=== PATIENT | female | born 1975 | race Two or more races ===

== ENCOUNTER 2022-11-18 09:52 | Inpatient (IN) | payer MEDICAID, OTHER ==
[~2022-11-18] VITALS: Ht 160 cm; Wt 82.0 kg
[2022-11-18 10:33] LABS: Urine Bacteria NONE SEEN /hpf (None Seen); Urine Blood Negative /uL (Negative); Urine Clarity HAZY (Clear); Urine Color Yellow (Yellow); Urine Hyaline Cast MOD /lpf (0 - 2); Urine Mucus FEW (None Seen); Urine Protein, UAD 1+ (Negative); Urine Specific Gravity 1.027 (1.001-1.035); Urine WBC 10 /hpf (0 - 5)
[2022-11-18 10:45] LABS: Alanine Aminotransferase 28 U/L (7-40); Albumin 4.3 g/dL (3.2-4.8); Alkaline Phosphatase 114 U/L (46-116); Anion Gap 7 (5-15); Aspartate Aminotransferase 14 U/L (13-40); BUN/Creatinine Ratio 12.4 (10.0-20.0); Blood Urea Nitrogen 12 mg/dL (9-23); Calcium 9.2 mg/dL (8.5-10.1); Carbon Dioxide 27 mmol/L (20-30); Chloride 105 mmol/L (98-107); Glucose 101 mg/dL (74-106); Potassium 4.1 mmol/L (3.5-5.1); Sodium 139 mmol/L (136-145)
[2022-11-18] MEDS ORDERED: SODIUM CHLORIDE 0.9% 1,000 ML IVB ONE (10:45)
[2022-11-18] MEDS ORDERED: PANTOPRAZOLE 40 MG/10 ML VIAL INJ IV ONE (10:45)
[2022-11-18] MEDS ORDERED: MORPHINE SULFATE 4 MG/ML SYR/VIAL IV ONE (10:45)
[2022-11-18] MEDS ORDERED: ONDANSETRON HCL 4 MG/2 ML VIAL IV ONE (10:45)
[2022-11-18 10:46] LABS: Basophils # (auto) 0 10 ^3/uL (0-0.2); Basophils % (auto) 0.3 % (0.0-2.0); Bilirubin, Total 0.5 mg/dL (0.2-1.0); Eosinophils # (auto) 0.1 10 ^3/uL (0-0.8); Eosinophils % (auto) 1.2 % (0.0-7.0); Hematocrit 42.5 % (36.0-46.0); Hemoglobin 14.6 g/dL (12.2-16.2); Lymphocytes % (auto) 19.2 % (10.0-50.0); Mean Corpuscular Hemoglobin 29.3 pg (28.0-32.0); Mean Corpuscular Hgb Conc. 34.3 g/dL (32.0-36.0); Mean Corpuscular Volume 85.5 fL (80.0-100.0); Monocytes # (auto) 0.6 10 ^3/uL (0-1.3); Monocytes % (auto) 5.4 % (0.0-12.0); Neutrophils # (auto) 7.8 10 ^3/uL (1.6-8.6); Neutrophils % (auto) 73.9 % (37.0-80.0); Nucleated Red Blood Cells % 0.1 %; Red Blood Cells 4.97 10^6/uL (4.0-5.20); Red Cell Distribution Width 13.2 % (11.8-14.3); Total Protein 7.6 g/dL (5.7-8.2); White Blood Cell 10.6 10^3/uL (4.4-10.8)
[2022-11-18 11:16] LABS: Magnesium 1.8 mg/dL (1.6-2.6)
[2022-11-18] MEDS ORDERED: cefTRIAXone 1GM/50ML D5W 50 ML IV ONE (11:45)
[2022-11-18 13:17] VITALS: PULSE 64; RESP 18; O2SAT 97
[2022-11-18] MEDS ORDERED: DOCUSATE SOD 100 MG CAP PO PRN (13:45)
[2022-11-18] MEDS ORDERED: HYDROcodone-ACET 5/325MG TAB PO PRN (13:45)
[2022-11-18] MEDS: SODIUM CHLORIDE 0.9% 1,000 ML IV SCH ×2 (14:54→20:46)
[2022-11-18] MEDS: ACETAMINOPHEN 325 MG TAB PO PRN (15:54)
[2022-11-18 19:30] VITALS: PULSE 54; RESP 18; O2SAT 92
[2022-11-18] MEDS: ONDANSETRON HCL 4 MG/2 ML VIAL IV PRN (20:48)
[2022-11-18] MEDS: MORPHINE SULFATE INJ 2 MG/ml SYRG IV PRN (20:51)
[2022-11-18 22:27] VITALS: BP 125/77; PULSE 51; PULSE 62; RESP 16; RESP 18; TEMP 98.5; O2SAT 92
[2022-11-19] MEDS: SODIUM CHLORIDE 0.9% 1,000 ML IV SCH ×4 (03:20→21:11)
[2022-11-19 04:43] VITALS: BP 143/60; PULSE 57; RESP 16; TEMP 98.2; O2SAT 97
[2022-11-19 06:23] LABS: Basophils # (auto) 0 10 ^3/uL (0-0.2); Basophils % (auto) 0.3 % (0.0-2.0); Eosinophils # (auto) 0.2 10 ^3/uL (0-0.8); Eosinophils % (auto) 1.9 % (0.0-7.0); Hematocrit 40.7 % (36.0-46.0); Lymphocytes # (auto) 2.1 10 ^3/uL (0.4-5.4); Mean Corpuscular Hemoglobin 29.4 pg (28.0-32.0); Mean Corpuscular Hgb Conc. 34.5 g/dL (32.0-36.0); Mean Corpuscular Volume 85.2 fL (80.0-100.0); Monocytes # (auto) 0.6 10 ^3/uL (0-1.3); Monocytes % (auto) 6.8 % (0.0-12.0); Neutrophils # (auto) 5.8 10 ^3/uL (1.6-8.6); Nucleated Red Blood Cells % 0.1 %; Red Blood Cells 4.77 10^6/uL (4.0-5.20); Red Cell Distribution Width 13.2 % (11.8-14.3); White Blood Cell 8.7 10^3/uL (4.4-10.8)
[2022-11-19 06:28] LABS: Alanine Aminotransferase 30 U/L (7-40); Alkaline Phosphatase 114 U/L (46-116); Calcium 8.9 mg/dL (8.7-10.4); Carbon Dioxide 28 mmol/L (20-30); Chloride 105 mmol/L (98-107)
[2022-11-19 06:29] LABS: Albumin 3.9 g/dL (3.2-4.8); Anion Gap 6 (5-15); Aspartate Aminotransferase 26 U/L (13-40); BUN/Creatinine Ratio 9.6 (10.0-20.0); Bilirubin, Total 0.4 mg/dL (0.2-1.0); Blood Urea Nitrogen 8 mg/dL (9-23); Glucose 96 mg/dL (74-106); Lipase 42 U/L (12-53); Potassium 4.2 mmol/L (3.5-5.1); Sodium 139 mmol/L (136-145); Total Protein 6.9 g/dL (5.7-8.2)
[2022-11-19 08:00] VITALS: BP 157/98; PULSE 69; RESP 17; TEMP 97.8; O2SAT 97
[2022-11-19 09:00] VITALS: BP 157/98; PULSE 69; RESP 17; TEMP 97.8; O2SAT 97
[2022-11-19] MEDS: cefTRIAXone 1GM/50ML D5W 50 ML IV SCH (09:24)
[2022-11-19] MEDS: metroNIDAZOLE 500MG/100ML 100 ML IV SCH ×2 (14:16→21:11)
[2022-11-19 16:33] LABS: INR 1.06 (0.9-1.15); Partial Thromboplastin Time 29.6 SEC (24.5-34.5); Prothrombin Time 11.1 sec (9.3-11.8)
[2022-11-19 17:00] VITALS: BP 126/88; PULSE 72; RESP 18; TEMP 98.2; O2SAT 96
[2022-11-19 20:00] VITALS: RESP 16
[2022-11-19] MEDS: ACETAMINOPHEN 325 MG TAB PO PRN (21:24)
[2022-11-19 22:00] VITALS: BP 144/79; PULSE 65; RESP 16; TEMP 97.8; O2SAT 94
[2022-11-20] MEDS: metroNIDAZOLE 500MG/100ML 100 ML IV SCH ×3 (06:00→21:37)
[2022-11-20] MEDS ORDERED: LIDOCAINE 2%HCL (LOCAL ANESTH.) INJ 10ml MDV ONE (06:46)
[2022-11-20] MEDS: SODIUM CHLORIDE 0.9% 1,000 ML IV SCH ×2 (07:00→17:00)
[2022-11-20] MEDS ORDERED: GLYCOPYRROLATE 0.2 MG/ML 1ML VIAL ONE (07:01)
[2022-11-20] MEDS ORDERED: ONDANSETRON HCL 4 MG/2 ML VIAL ONE (07:01)
[2022-11-20] MEDS ORDERED: PROPOFOL 10 MG/ML 20 ML IV ONE (07:01)
[2022-11-20] MEDS ORDERED: ROCURONIUM 10MG/ML 10ML VIAL IV ONE (07:01)
[2022-11-20] MEDS ORDERED: DexAMETHasone SOD PHOS 10MG/1ML VIAL INJ ONE (07:02)
[2022-11-20] MEDS ORDERED: KETOROLAC TROMETH 60MG/2ML VIAL ONE (07:02)
[2022-11-20] MEDS ORDERED: SUGAMMADEX 200mg/2ml Vial (100MG/ML) IV ONE (07:04)
[2022-11-20] MEDS ORDERED: fentaNYL CITRATE 100 MCG/2 ML VL ONE (07:04)
[2022-11-20] MEDS ORDERED: BUPIVACAINE HCL 0 ML ONE (07:05)
[2022-11-20] MEDS ORDERED: LIDOCAINE 1%-Mpf/Epinephrine 1:200,000 30ml VIAL ONE (07:05)
[2022-11-20] MEDS: cefTRIAXone 1GM/50ML D5W 50 ML IV SCH (09:00)
[2022-11-20 11:20] LABS: Alanine Aminotransferase 32 U/L (7-40); Alkaline Phosphatase 112 U/L (46-116); Anion Gap 8 (5-15); Aspartate Aminotransferase 21 U/L (13-40); Bilirubin, Total 0.6 mg/dL (0.2-1.0); Blood Urea Nitrogen 7 mg/dL (9-23); Calcium 9.4 mg/dL (8.5-10.1); Carbon Dioxide 26 mmol/L (20-30); Chloride 106 mmol/L (98-107); Glucose 90 mg/dL (74-106); Sodium 140 mmol/L (136-145); Total Protein 7.3 g/dL (5.7-8.2)
[2022-11-20] MEDS: ACETAMINOPHEN 325 MG TAB PO PRN (15:28)
[2022-11-20 16:10] VITALS: BP 124/74; PULSE 59; RESP 20; TEMP 98.3; O2SAT 97
[2022-11-20 16:18] LABS: Basophils # (auto) 0.1 10 ^3/uL (0-0.2); Basophils % (auto) 0.6 % (0.0-2.0); Eosinophils # (auto) 0.2 10 ^3/uL (0-0.8); Eosinophils % (auto) 1.7 % (0.0-7.0); Hemoglobin 14.9 g/dL (12.2-16.2); Lymphocytes # (auto) 2.7 10 ^3/uL (0.4-5.4); Lymphocytes % (auto) 26.1 % (10.0-50.0); Monocytes # (auto) 0.9 10 ^3/uL (0-1.3); Monocytes % (auto) 8.5 % (0.0-12.0); Neutrophils # (auto) 6.4 10 ^3/uL (1.6-8.6); Neutrophils % (auto) 63.1 % (37.0-80.0); Red Blood Cells 5.15 10^6/uL (4.0-5.20); White Blood Cell 10.2 10^3/uL (4.4-10.8)
[2022-11-20 16:19] LABS: Hematocrit 44.8 % (36.0-46.0); Mean Corpuscular Hemoglobin 28.9 pg (28.0-32.0); Mean Corpuscular Hgb Conc. 33.3 g/dL (32.0-36.0); Red Cell Distribution Width 13.4 % (11.8-14.3)
[2022-11-20 16:40] LABS: INR 1.11 (0.9-1.15); Prothrombin Time 11.6 sec (9.3-11.8)
[2022-11-20 20:00] VITALS: BP 152/81; PULSE 55; RESP 18; TEMP 98; O2SAT 96
[2022-11-20 22:00] VITALS: BP 152/81; PULSE 55; RESP 18; TEMP 98; O2SAT 96
[2022-11-21] VITALS (7 sets, daily range): BP systolic 131–172; BP diastolic 81–101; PULSE 54–80; RESP 15–19; TEMP 97.4–98.3; O2SAT 93–99
[2022-11-21] MEDS: ACETAMINOPHEN 325 MG TAB PO PRN (04:42)
[2022-11-21] MEDS: SODIUM CHLORIDE 0.9% 1,000 ML IV SCH ×3 (04:43→23:00)
[2022-11-21] MEDS: metroNIDAZOLE 500MG/100ML 100 ML IV SCH ×3 (04:54→21:58)
[2022-11-21 06:32] LABS: Basophils # (auto) 0.1 10 ^3/uL (0-0.2); Basophils % (auto) 0.6 % (0.0-2.0); Eosinophils # (auto) 0.2 10 ^3/uL (0-0.8); Eosinophils % (auto) 1.6 % (0.0-7.0); Hematocrit 44.8 % (36.0-46.0); Hemoglobin 15.4 g/dL (12.2-16.2); Lymphocytes # (auto) 2.6 10 ^3/uL (0.4-5.4); Lymphocytes % (auto) 24.3 % (10.0-50.0); Mean Corpuscular Hemoglobin 29.2 pg (28.0-32.0); Mean Corpuscular Hgb Conc. 34.4 g/dL (32.0-36.0); Mean Corpuscular Volume 84.7 fL (80.0-100.0); Monocytes # (auto) 0.7 10 ^3/uL (0-1.3); Monocytes % (auto) 6.5 % (0.0-12.0); Neutrophils # (auto) 7.3 10 ^3/uL (1.6-8.6); Nucleated Red Blood Cells % 0.2 %; Red Blood Cells 5.29 10^6/uL (4.0-5.20); White Blood Cell 10.9 10^3/uL (4.4-10.8)
[2022-11-21 06:36] LABS: Alanine Aminotransferase 28 U/L (7-40); Alkaline Phosphatase 131 U/L (46-116); Anion Gap 8 (5-15); Calcium 9.7 mg/dL (8.7-10.4); Carbon Dioxide 26 mmol/L (20-30); Chloride 105 mmol/L (98-107); Potassium 3.8 mmol/L (3.5-5.1); Sodium 139 mmol/L (136-145)
[2022-11-21 06:37] LABS: Albumin 4.5 g/dL (3.2-4.8); Aspartate Aminotransferase 24 U/L (13-40); Bilirubin, Total 0.6 mg/dL (0.2-1.0); Blood Urea Nitrogen 7 mg/dL (9-23)
[2022-11-21 07:07] LABS: Glucose 95 mg/dL (74-106)
[2022-11-21] MEDS: cefTRIAXone 1GM/50ML D5W 50 ML IV SCH ×2 (09:16→13:15)
[2022-11-21] MEDS ORDERED: LIDOCAINE 1%-Mpf/Epinephrine 1:200,000 30ml VIAL ONE (10:24)
[2022-11-21] MEDS ORDERED: MIDAZOLAM HCL 2MG/2ML 2ml VIAL (1mg/ml) ONE (10:25)
[2022-11-21] MEDS ORDERED: BUPIVACAINE 0.5% P/F INJ 10 ML VIAL ONE (10:25)
[2022-11-21] MEDS ORDERED: fentaNYL CITRATE 100 MCG/2 ML VL ONE (10:25)
[2022-11-21] MEDS ORDERED: HYDROmorphone HCL 2 MG/ML VL/or syr ONE (11:05)
[2022-11-21] MEDS ORDERED: HYDROmorphone HCL 2 MG/ML VL/or syr IV PRN ×2 (11:45)
[2022-11-21] MEDS ORDERED: ONDANSETRON HCL 4 MG/2 ML VIAL IV PRN (11:45)
[2022-11-21] MEDS ORDERED: POVIDONE IODINE 10 % TOPICAL OINT 30GM TOP ONE (11:47)
[2022-11-21] MEDS ORDERED: SUGAMMADEX 200mg/2ml Vial (100MG/ML) IV ONE (12:23)
[2022-11-21] MEDS ORDERED: PROPOFOL 10 MG/ML 20 ML IV ONE (12:58)
[2022-11-21] MEDS: ONDANSETRON HCL 4 MG/2 ML VIAL IV PRN ×2 (15:51→20:38)
[2022-11-21] MEDS: MORPHINE SULFATE INJ 2 MG/ml SYRG IV PRN ×2 (15:53→20:29)
[2022-11-22] MEDS: ONDANSETRON HCL 4 MG/2 ML VIAL IV PRN (00:28)
[2022-11-22] MEDS: MORPHINE SULFATE INJ 2 MG/ml SYRG IV PRN (00:29)
[2022-11-22] MEDS ORDERED: HYDROmorphone HCL 2 MG/ML VL/or syr IV ONE (04:15)
[2022-11-22] MEDS: SODIUM CHLORIDE 0.9% 1,000 ML IV SCH ×2 (04:18→18:35)
[2022-11-22 05:00] VITALS: BP 139/93; PULSE 104; RESP 20; TEMP 98.4; O2SAT 95
[2022-11-22] MEDS: metroNIDAZOLE 500MG/100ML 100 ML IV SCH ×3 (05:16→21:10)
[2022-11-22 05:40] LABS: Basophils # (auto) 0 10 ^3/uL (0-0.2); Basophils % (auto) 0.1 % (0.0-2.0); Eosinophils # (auto) 0 10 ^3/uL (0-0.8); Hematocrit 41.3 % (36.0-46.0); Hemoglobin 14.1 g/dL (12.2-16.2); Lymphocytes % (auto) 5.2 % (10.0-50.0); Mean Corpuscular Hemoglobin 29.1 pg (28.0-32.0); Mean Corpuscular Hgb Conc. 34.1 g/dL (32.0-36.0); Mean Corpuscular Volume 85.5 fL (80.0-100.0); Monocytes # (auto) 1.5 10 ^3/uL (0-1.3); Monocytes % (auto) 7.8 % (0.0-12.0); Neutrophils # (auto) 16.3 10 ^3/uL (1.6-8.6); Neutrophils % (auto) 86.9 % (37.0-80.0); Red Blood Cells 4.84 10^6/uL (4.0-5.20); Red Cell Distribution Width 13.3 % (11.8-14.3); White Blood Cell 18.7 10^3/uL (4.4-10.8)
[2022-11-22 08:00] VITALS: PULSE 96; RESP 16; O2SAT 96
[2022-11-22 09:42] VITALS: BP 118/86; PULSE 96; RESP 16; TEMP 98.9; O2SAT 95
[2022-11-22] MEDS ORDERED: PROMETHAZINE HCL 25 MG/ML 1ML IV PRN (11:45)
[2022-11-22] MEDS: ACETAMINOPHEN 325 MG TAB PO PRN (12:27)
[2022-11-22] MEDS: HYDROmorphone HCL 2 MG/ML VL/or syr IV PRN ×2 (12:44→18:26)
[2022-11-22 12:47] VITALS: BP 120/89; PULSE 99; RESP 16; TEMP 100.5; O2SAT 94
[2022-11-22 19:42] VITALS: PULSE 95; RESP 18; O2SAT 95
[2022-11-22 22:00] VITALS: BP 125/70; PULSE 91; RESP 18; TEMP 98.7; O2SAT 95
[2022-11-23] VITALS (7 sets, daily range): BP systolic 117–154; BP diastolic 70–95; PULSE 54–89; RESP 17–20; TEMP 98–99; O2SAT 91–100
[2022-11-23] MEDS: metroNIDAZOLE 500MG/100ML 100 ML IV SCH ×3 (05:26→21:20)
[2022-11-23] MEDS: SODIUM CHLORIDE 0.9% 1,000 ML IV SCH ×3 (05:26→23:42)
[2022-11-23 05:30] LABS: Basophils # (auto) 0 10 ^3/uL (0-0.2); Basophils % (auto) 0.3 % (0.0-2.0); Eosinophils # (auto) 0.1 10 ^3/uL (0-0.8); Eosinophils % (auto) 1.1 % (0.0-7.0); Hematocrit 36.2 % (36.0-46.0); Hemoglobin 12.3 g/dL (12.2-16.2); Lymphocytes # (auto) 1.7 10 ^3/uL (0.4-5.4); Lymphocytes % (auto) 14.4 % (10.0-50.0); Mean Corpuscular Hemoglobin 29.1 pg (28.0-32.0); Mean Corpuscular Hgb Conc. 34.1 g/dL (32.0-36.0); Mean Corpuscular Volume 85.4 fL (80.0-100.0); Monocytes # (auto) 0.9 10 ^3/uL (0-1.3); Monocytes % (auto) 7.5 % (0.0-12.0); Neutrophils # (auto) 9.1 10 ^3/uL (1.6-8.6); Neutrophils % (auto) 76.7 % (37.0-80.0); Red Blood Cells 4.23 10^6/uL (4.0-5.20); Red Cell Distribution Width 13.2 % (11.8-14.3); White Blood Cell 11.9 10^3/uL (4.4-10.8)
[2022-11-23] MEDS: HYDROmorphone HCL 2 MG/ML VL/or syr IV PRN (05:39)
[2022-11-23] MEDS: cefTRIAXone 1GM/50ML D5W 50 ML IV SCH (08:12)
[2022-11-24 05:06] VITALS: BP 121/77; PULSE 84; RESP 16; TEMP 97.5; O2SAT 96
[2022-11-24] MEDS: metroNIDAZOLE 500MG/100ML 100 ML IV SCH ×3 (05:49→22:20)
[2022-11-24] MEDS: cefTRIAXone 1GM/50ML D5W 50 ML IV SCH (08:34)
[2022-11-24 09:00] VITALS: BP 149/89; PULSE 70; RESP 17; TEMP 98.4; O2SAT 97
[2022-11-24] MEDS: SODIUM CHLORIDE 0.9% 1,000 ML IV SCH ×2 (10:30→23:50)
[2022-11-24] MEDS ORDERED: HYDROcodone-ACET 5/325MG TAB PO PRN (10:30)
[2022-11-24] MEDS ORDERED: IOHEXOL 350 MG/ML 100ML IJ ONE (10:51)
[2022-11-24 13:00] VITALS: BP 136/87; PULSE 76; RESP 18; TEMP 98.6; O2SAT 92
[2022-11-24 17:00] VITALS: BP 147/88; PULSE 63; RESP 17; TEMP 98.7; O2SAT 93
[2022-11-24 20:00] VITALS: PULSE 61; RESP 18; O2SAT 94
[2022-11-24 22:00] VITALS: BP 146/86; PULSE 61; RESP 18; TEMP 99; O2SAT 94
[2022-11-25 05:00] VITALS: BP 143/99; PULSE 74; RESP 17; TEMP 98.4; O2SAT 95
[2022-11-25] MEDS: metroNIDAZOLE 500MG/100ML 100 ML IV SCH ×3 (05:58→21:38)
[2022-11-25 07:08] LABS: Basophils # (auto) 0 10 ^3/uL (0-0.2); Basophils % (auto) 0.5 % (0.0-2.0); Eosinophils # (auto) 0.2 10 ^3/uL (0-0.8); Eosinophils % (auto) 2.2 % (0.0-7.0); Hematocrit 37.1 % (36.0-46.0); Hemoglobin 12.7 g/dL (12.2-16.2); Lymphocytes # (auto) 2.2 10 ^3/uL (0.4-5.4); Mean Corpuscular Hemoglobin 29.1 pg (28.0-32.0); Mean Corpuscular Hgb Conc. 34.3 g/dL (32.0-36.0); Monocytes # (auto) 0.6 10 ^3/uL (0-1.3); Monocytes % (auto) 6.4 % (0.0-12.0); Neutrophils # (auto) 5.9 10 ^3/uL (1.6-8.6); Neutrophils % (auto) 65.9 % (37.0-80.0); Red Blood Cells 4.36 10^6/uL (4.0-5.20); Red Cell Distribution Width 13.3 % (11.8-14.3); White Blood Cell 8.9 10^3/uL (4.4-10.8)
[2022-11-25 07:14] LABS: Alanine Aminotransferase 32 U/L (7-40); Albumin 3.8 g/dL (3.2-4.8); Alkaline Phosphatase 108 U/L (46-116); Anion Gap 6 (5-15); Aspartate Aminotransferase 20 U/L (13-40); BUN/Creatinine Ratio 9.3 (10.0-20.0); Blood Urea Nitrogen 7 mg/dL (9-23); Calcium 9.2 mg/dL (8.7-10.4); Carbon Dioxide 26 mmol/L (20-30); Chloride 106 mmol/L (98-107); Glucose 99 mg/dL (74-106); Potassium 3.8 mmol/L (3.5-5.1); Sodium 138 mmol/L (136-145)
[2022-11-25 07:15] LABS: Bilirubin, Total 0.5 mg/dL (0.2-1.0); Total Protein 6.7 g/dL (5.7-8.2)
[2022-11-25 08:30] VITALS: BP 145/89; PULSE 65; RESP 18; TEMP 98.4; O2SAT 97
[2022-11-25] MEDS: cefTRIAXone 1GM/50ML D5W 50 ML IV SCH (08:48)
[2022-11-25] MEDS ORDERED: TRAM50TA2 PO (10:38)
[2022-11-25] MEDS ORDERED: LEVO500T91 PO (10:38)
[2022-11-25] MEDS ORDERED: DOCU-94 PO (10:38)
[2022-11-25] MEDS ORDERED: METR-344 PO (10:38)
[2022-11-25] MEDS ORDERED: MAALOX PLUS or MAALOX 30 ML PO PRN (11:00)
[2022-11-25] MEDS ORDERED: MAALOX PLUS or MAALOX 30 ML PO ONE (11:00)
[2022-11-25 12:30] VITALS: BP 149/89; PULSE 63; RESP 17; TEMP 98.3; O2SAT 93
[2022-11-25] MEDS: SODIUM CHLORIDE 0.9% 1,000 ML IV SCH (13:10)
[2022-11-25 16:39] VITALS: BP 150/101; PULSE 71; RESP 18; TEMP 98.3; O2SAT 93
[2022-11-25 20:00] VITALS: PULSE 61; RESP 18; O2SAT 95
[2022-11-25 22:00] VITALS: BP 147/84; PULSE 61; RESP 18; TEMP 98.2; O2SAT 95
[2022-11-26] MEDS: SODIUM CHLORIDE 0.9% 1,000 ML IV SCH ×2 (03:58→15:50)
[2022-11-26 05:00] VITALS: BP 144/89; PULSE 75; RESP 21; TEMP 98.3; O2SAT 94
[2022-11-26] MEDS: metroNIDAZOLE 500MG/100ML 100 ML IV SCH ×2 (06:00→15:24)
[2022-11-26] MEDS: ACETAMINOPHEN 325 MG TAB PO PRN (06:47)
[2022-11-26 09:00] VITALS: BP 151/94; PULSE 70; RESP 18; TEMP 98.3; O2SAT 95
[2022-11-26] MEDS: cefTRIAXone 1GM/50ML D5W 50 ML IV SCH (09:24)
[2022-11-26 12:30] VITALS: BP 151/86; PULSE 69; RESP 18; TEMP 98; O2SAT 96
[2022-11-26 17:00] VITALS: BP 145/83; PULSE 67; RESP 19; TEMP 98.7; O2SAT 95
== END 2022-11-26 18:20 | disposition home or self-care (01) | DRG 263 ==
LOC: ER 09:52 → OVERFLOW 13:34 → WEST WING 21:24
PROVIDERS: ADMIT Nurse Practitioner Family; ATTEND Internal Medicine
PROC: 0FJ44ZZ Inspection of Gallbladder, Percutaneous Endoscopic Approach (ICD-10-PCS; 2022-11-21)
PROC: 0FT40ZZ Resection of Gallbladder, Open Approach (ICD-10-PCS; principal; 2022-11-21 10:39)
DX: K80.00 Calculus of gallbladder with acute cholecystitis without obstruction (principal); J96.00 Acute respiratory failure, unspecified whether with hypoxia or hypercapnia; K76.0 Fatty (change of) liver, not elsewhere classified; N39.0 Urinary tract infection, site not specified; Z53.31 Laparoscopic surgical procedure converted to open procedure; Z98.891 History of uterine scar from previous surgery
CPT/HCPCS: 36415; 71275; 76705; 78226; 80053; 81001; 81025; 82247; 83690; 83735; 84702; 85025; 85379; 85610; 85730; 86850; 86900; 86901; 87086; 93970; 96361; 96365; 96375; 96376; 97110; 97116; 97163; 97530; C9113; G0378; J0696; J1100; J1885; J2001; J2250; J2405; J2704; J3490

== ENCOUNTER 2022-12-16 11:26 | Emergency (ER) | payer MEDICAID ==
[~2022-12-16] VITALS: Ht 162.6 cm; Wt 73.0 kg
[~2022-12-16 11:26] MED LIST: DOCU-94 PO; LEVO500T91 PO; METR-344 PO; TRAM50TA2 PO
[2022-12-16] MEDS ORDERED: SODIUM CHLORIDE 0.9% 1,000 ML IV ONE (12:00)
[2022-12-16] MEDS ORDERED: KETOROLAC TROMETH 30 MG/ML 1ML VIAL IV ONE (12:00)
[2022-12-16 12:04] LABS: Urine Bacteria FEW /hpf (None Seen); Urine Blood Negative /uL (Negative); Urine Clarity Clear (Clear); Urine Color Colorless (Yellow); Urine Protein, UAD Negative (Negative); Urine Specific Gravity 1.006 (1.001-1.035); Urine Urobilinogen Normal (Negative); Urine WBC <1 /hpf (0 - 5); Urine pH 6.5 (5.0-8.0)
[2022-12-16 12:14] LABS: Basophils # (auto) 0.1 10 ^3/uL (0-0.2); Basophils % (auto) 0.6 % (0.0-2.0); Eosinophils # (auto) 0.2 10 ^3/uL (0-0.8); Eosinophils % (auto) 2.1 % (0.0-7.0); Hematocrit 42.9 % (36.0-46.0); Hemoglobin 14.5 g/dL (12.2-16.2); Lymphocytes # (auto) 2.4 10 ^3/uL (0.4-5.4); Lymphocytes % (auto) 29.2 % (10.0-50.0); Mean Corpuscular Hemoglobin 28.9 pg (28.0-32.0); Mean Corpuscular Hgb Conc. 33.8 g/dL (32.0-36.0); Mean Corpuscular Volume 85.5 fL (80.0-100.0); Monocytes # (auto) 0.5 10 ^3/uL (0-1.3); Neutrophils % (auto) 62.1 % (37.0-80.0); Nucleated Red Blood Cells % 0.1 %; Red Blood Cells 5.02 10^6/uL (4.0-5.20); Red Cell Distribution Width 13.7 % (11.8-14.3); White Blood Cell 8.1 10^3/uL (4.4-10.8)
[2022-12-16 12:54] VITALS: BP 156/74; PULSE 66; RESP 18; TEMP 98.2; O2SAT 98
[2022-12-16 13:04] LABS: Alanine Aminotransferase 70 U/L (7-40); Albumin 4.3 g/dL (3.2-4.8); Alkaline Phosphatase 117 U/L (46-116); Anion Gap 8 (5-15); Aspartate Aminotransferase 53 U/L (13-40); BUN/Creatinine Ratio 10.5 (10.0-20.0); Blood Urea Nitrogen 8 mg/dL (9-23); Calcium 9.5 mg/dL (8.5-10.1); Carbon Dioxide 21 mmol/L (20-30); Chloride 110 mmol/L (98-107); Glucose 100 mg/dL (74-106); Potassium 3.7 mmol/L (3.5-5.1); Sodium 139 mmol/L (136-145)
[2022-12-16 13:05] LABS: Bilirubin, Total 0.4 mg/dL (0.2-1.0); Total Protein 7.6 g/dL (5.7-8.2)
[2022-12-16 14:38] LABS: Lipase 52 U/L (12-53)
== END 2022-12-16 14:13 | disposition home or self-care (01) ==
LOC: ER 11:26
DX: R10.13 Epigastric pain (principal); R11.0 Nausea; Z79.2 Long term (current) use of antibiotics; Z79.899 Other long term (current) drug therapy
CPT/HCPCS: 36415; 74176; 80053; 81001; 83690; 85025; 96361; 96374; 99285; J1885

== ENCOUNTER 2023-01-06 15:11 | Emergency (ER) | payer MEDICAID ==
[~2023-01-06] VITALS: Ht 167.6 cm; Wt 73.3 kg
[2023-01-06 15:59] VITALS: BP 126/102; PULSE 88; RESP 18; O2SAT 98
[2023-01-06 16:46] LABS: Urine Bacteria NONE SEEN /hpf (None Seen); Urine Blood Negative /uL (Negative); Urine Clarity Clear (Clear); Urine Color Colorless (Yellow); Urine Protein, UAD Negative (Negative); Urine Specific Gravity 1.005 (1.001-1.035); Urine Urobilinogen Normal (Negative); Urine WBC 2 /hpf (0 - 5); Urine pH 6.5 (5.0-8.0)
== END 2023-01-06 22:53 | disposition home or self-care (01) ==
LOC: ER 15:11
DX: T85.848A Pain due to other internal prosthetic devices, implants and grafts, initial encounter (principal); K80.20 Calculus of gallbladder without cholecystitis without obstruction; Z98.890 Other specified postprocedural states; Z79.899 Other long term (current) drug therapy; Y92.89 Other specified places as the place of occurrence of the external cause
CPT/HCPCS: 74176; 81001

== ENCOUNTER 2023-01-14 11:42 | Emergency (ER) | payer MEDICAID ==
[~2023-01-14] VITALS: Ht 167.6 cm; Wt 73.6 kg
[2023-01-14 12:10] VITALS: BP 149/100; PULSE 84; RESP 16; O2SAT 98
[2023-01-14] MEDS ORDERED: ONDANSETRON HCL 4 MG/2 ML VIAL IV ONE (12:45)
[2023-01-14] MEDS ORDERED: MORPHINE SULFATE 4 MG/ML SYR/VIAL IV ONE (12:45)
== END 2023-01-14 14:25 | disposition left against medical advice (07) ==
LOC: ER 11:42
DX: R10.9 Unspecified abdominal pain (principal); I10 Essential (primary) hypertension; Z90.49 Acquired absence of other specified parts of digestive tract; Z98.51 Tubal ligation status